=== PATIENT | male | born 1970 | race Caucasian/White ===

== ENCOUNTER → 2016-08-14 | Outpatient (CLI) | payer MEDICAID ==
[2016-08-14 14:18] LABS: EKG EKG PERFORMED
[2016-08-14 15:03] LABS: Anion Gap 12 mmol/L; Carbon Dioxide 27 mmol/L (22-30); Chloride 104 mmol/L (98-107); Sodium 143 mmol/L (137-145)
== END | disposition home or self-care (01) ==
LOC: LABWHC1 14:04
PROVIDERS: ATTEND Orthopaedic Surgery Sports Medicine
DX: S83.241A Other tear of medial meniscus, current injury, right knee, initial encounter (principal)
CPT/HCPCS: 36415; 80051; 93005